=== PATIENT | female | born 1990 | race Caucasian/White ===

== ENCOUNTER 2018-04-20 16:09 | Emergency (ER) | payer MEDICARE, MEDICAID, SELFPAY ==
[2018-04-20 16:15] VITALS: BP 123/75; PULSE 88; RESP 12; TEMP 37.4; O2SAT 97
--- NOTE | 2018-04-20 16:41 | ED.GENADUL ---
Disposition Clinical Impression: Left foot pain Disposition: HOME Condition: Stable Instructions: Leg Pain (ED) Additional Instructions: Alternate Tylenol and Motrin as needed for pain. Apply ice to the affected area several times daily as needed. If you have any increasing pain, apply Neosporin and a Band-Aid. Follow-up with your primary care doctor within the next week as needed. Return to the emergency department with any worsening or new concerning symptoms such as fever, increased pain, redness or swelling. Medical Decision Making - Lab Data Pt refused test for radiology - Radiology Data Radiology results: report reviewed, image reviewed Left foot x-ray: Negative - Medical Decision Making 27 old female presents with a pruritic and mildly painful approximately 3x4cm minimally raised area of edema and erythema on the plantar surface of the left foot since this morning. There is no puncture wound or any indication of trauma. The area is extremely minimal in significance compared to remainder of foot and may be a very small allergic local reaction or inflammation or very slight infection. Patient instructed to apply ice to the affected area, and if any change or worsening of symptoms, apply Neosporin. Instructed to follow-up with primary care doctor return here if worse. History of Present Illness - General Chief complaint: Allergic Stated complaint: ALLERGIC REACTION Time Seen by Provider: 04/20/18 16:16 Source: patient Mode of arrival: ambulatory Limitations: no limitations - History of Present Illness Initial comments: Patient is a 27 old female who presents with a red swollen area to the bottom of her left foot since this morning. Patient states she was seen recently at the hospital for a possible allergic reaction to her left ankle and was put on antibiotic and steroid. Patient states she is unsure how she developed this area on the bottom of her foot and admits to some itching and pain. He denies new injury or other new medications. - Related Data Unknown [No Known Home Meds] 04/20/18 Allergies Allergy/AdvReac Type Severity Reaction Status Date / Time amoxicillin AdvReac Intermediate Hives Unverified 04/20/18 16:28 Penicillins AdvReac Intermediate Hives Unverified 04/20/18 16:26 Review of Systems Constitutional: denies: chills, fever Eyes: denies: eye pain ENT: denies: ear pain, dental pain Respiratory: denies: cough, shortness of breath Cardiovascular: denies: chest pain, dyspnea on exertion Gastrointestinal: denies: abdominal pain, nausea, vomiting Genitourinary: denies: urgency, dysuria, frequency Musculoskeletal: denies: back pain Skin: denies: rash, lesions Neurological: denies: headache, weakness, numbness Past Medical History - Past Medical History Medical history: no medical history Surgical history: no surgical history Psychiatric history: schizophrenia - Social History Smoking status: current everyday smoker Alcohol use: occasionally Drug use: none General Exam - General Limitations: no limitations General appearance: alert, in no apparent distress - Eye Eye exam: Present: EOMI - Respiratory Respiratory exam: Absent: respiratory distress - Cardiovascular Cardiovascular Exam: Present: regular rate - Extremities Exam Extremities exam: Present: other (Extremely minimal area of approximatley 3x4cm erythema and edema noted to plantar surface of foot within arch of foot and left heel. There is no rash, abrasion, laceration, induration, fluctuance or puncture wound or obvious foreign body. There is no tenderness to palpation of this area.) - Neurological Exam Neurological exam: Present: alert, oriented X3 - Psychiatric Psychiatric exam: Present: normal affect - Skin Skin exam: Present: warm, dry, intact Course Vital Signs - 24 hr 04/20/18 16:15 Temperature 99.3 F Pulse 88 Respiratory 12 Rate Blood Pressure 123/75 Pulse Oximetry 97
[2018-04-20] MEDS: Acetaminophen 325 MG TAB 650 MG PO (16:46)
--- NOTE | 2018-04-20 16:54 | DI.REPORT_ITS ---
SYMPTOM/DIAGNOSIS: LT HEEL PAIN, R/O ACUTE FOREIGN BODY, FX LEFT FOOT: Three views. No bone or joint abnormality is identified. No radiopaque foreign bodies are seen in the soft tissues. IMPRESSION: Negative examination.
--- NOTE | 2018-04-20 17:13 | DI.VRAD_ITS ---
EXAM: XR Left Foot Complete, 3 or more Views EXAM DATE/TIME: 04/20/2018 4:42 PM CLINICAL HISTORY: 27 years old, female; Signs and symptoms; Other: Left heel pain, R/O foreign body/fx, PT has rash on foot TECHNIQUE: XR Left foot 3 or more views. COMPARISON: No relevant prior studies available. FINDINGS: Bones/joints: Normal. Soft tissues: Normal. IMPRESSION: No acute findings. Dictated and Authenticated by: Buzz Souza MD. Ordering:DEMETRA SMYTH MD
[2018-04-20 17:42] VITALS: BP 123/75; PULSE 88; RESP 12; TEMP 37.4; O2SAT 97
== END 2018-04-20 17:42 | disposition home or self-care (01) ==
PROVIDERS: Emergency Provider Physician Assistant; PCP Family Medicine
DX: M79.672 Pain in left foot (principal)
CPT/HCPCS: 99283; 73630

== ENCOUNTER 2018-04-28 13:07 | Emergency (ER) | payer MEDICARE, MEDICAID, SELFPAY ==
[2018-04-28 13:15] VITALS: BP 114/68; PULSE 80; RESP 16; TEMP 37.1; O2SAT 97
--- NOTE | 2018-04-28 13:28 | ED.GENADUL_ITS ---
Disposition Clinical Impression: Visit for pelvic exam Disposition: HOME Condition: Stable Instructions: Vaginal Foreign Body (ED) Additional Instructions: You were not found to have a retained tampon on your exam today. Be sure to be aware of when you are removing her tampons. The risk of a retained tampon includes toxic shock syndrome in which you develop a fever and a systemic infection. If you develop any worsening or new concerning symptoms, return immediately to the emergency department. Follow-up with your primary care doctor in 1 week as needed. Medical Decision Making - Medical Decision Making 27-year-old female who presents for concern for retained tampon. Vitals within normal limits. No acute findings on exam. Patient appears nontoxic. Pelvic exam revealed no retained tampon. No cervical motion or adnexal tenderness or mass. There is white physiologic discharge noted. Patient denied any known vaginal discharge. Patient states she feels fine and would like to go home. She states she thinks she now may have removed it and just could not remember. Patient instructed on the concern with retained tampons and the possibility of toxic shock syndrome. She is instructed to follow-up with her primary care doctor as needed and return here if worse. History of Present Illness - General Chief complaint: LOCKER ROOM ATTENDANT Stated complaint: UNKNOWN Time Seen by Provider: 04/28/18 13:09 Source: patient Mode of arrival: ambulatory Limitations: no limitations - History of Present Illness Initial comments: Patient is a 27-year-old female presents for concern of retained tampon since last night. Patient states she put a tampon in at 9 PM last night and cannot remember if she removed it. States she pulled it out and did not see any blood on it and she cannot remember if it was just the string or the tampon as well. She denies fever, nausea, vomiting, abdominal pain, vaginal discharge or bleeding. - Related Data Unknown [No Known Home Meds] 04/20/18 Allergies Allergy/AdvReac Type Severity Reaction Status Date / Time amoxicillin AdvReac Intermediate Hives Unverified 04/28/18 13:18 Penicillins AdvReac Intermediate Hives Unverified 04/28/18 13:18 Review of Systems Constitutional: denies: chills, fever Eyes: denies: eye pain ENT: denies: ear pain, dental pain Respiratory: denies: cough, shortness of breath Cardiovascular: denies: chest pain, dyspnea on exertion Gastrointestinal: denies: abdominal pain, nausea, vomiting Genitourinary: denies: urgency, dysuria, frequency Musculoskeletal: denies: back pain Skin: denies: rash, lesions Neurological: denies: headache, weakness, numbness Past Medical History - Past Medical History Medical history: no medical history Surgical history: no surgical history Psychiatric history: schizophrenia - Social History Smoking status: current everyday smoker Alcohol use: occasionally Drug use: none General Exam - General Limitations: no limitations General appearance: alert, in no apparent distress - Eye Eye exam: Present: EOMI - Respiratory Respiratory exam: Present: normal lung sounds bilaterally. Absent: respiratory distress, wheezes, rales, rhonchi, stridor - Cardiovascular Cardiovascular Exam: Present: regular rate, normal rhythm. Absent: bradycardia , tachycardia - GI/Abdominal GI/Abdominal exam: Present: soft, normal bowel sounds. Absent: distended, tenderness, guarding, rebound, rigid - Neurological Exam Neurological exam: Present: alert, oriented X3 - Psychiatric Psychiatric exam: Present: normal affect - Skin Skin exam: Present: warm, dry, intact Course Vital Signs - 24 hr 04/28/18 13:15 Temperature 98.8 F Pulse 80 Respiratory 16 Rate Blood Pressure 114/68 Pulse Oximetry 97
[2018-04-28 13:53] VITALS: BP 114/68; PULSE 80; RESP 16; TEMP 37.1; O2SAT 97
== END 2018-04-28 13:53 | disposition home or self-care (01) ==
PROVIDERS: Emergency Provider Physician Assistant; PCP Family Medicine
DX: T19.2XXA Foreign body in vulva and vagina, initial encounter (principal); Z71.1 Person with feared health complaint in whom no diagnosis is made
CPT/HCPCS: 99282; 99284

== ENCOUNTER 2018-06-11 12:28 | Emergency (ER) | payer MEDICARE, MEDICAID, SELFPAY ==
[2018-06-11 12:34] VITALS: BP 105/65; PULSE 79; RESP 16; TEMP 37.2; O2SAT 97
--- NOTE | 2018-06-11 12:43 | W.ED.GENAD ---
Discharge Plan Discharge Details Chief Complaint: CORPORATE GENERAL MANAGER Primary Care Provider: Kayla Montgomery ED Provider: Tyrone Johnson Home Meds and New Rx's Prescriptions: No Action No Known Home Meds RF: 0 Medical Decision Making 27-year-old female presents with concern for possible STD. She denies any symptoms. She states that she has otherwise been well. Screening urinalysis and [id number] test obtained. Patient referred for GC and chlamydia urine testing she understands that these tests will not come back today. She will follow up with PMD for recheck or call for result. HPI General Mode of arrival: ambulatory. Date/Time Provider Initiated Documentation: 06/11/18 12:37. Limitations to Documentation: no limitations. Information obtained by: patient. History of Present Illness 27 year old F presents to the emergency department with the chief complaint of STD testing, HPI Narrative: Patient presents with CC of wanting STD testing ue to unprotected sex. no other complaints. Denies vaginal bleeding or discharge. No fever. Related Data Home Medications Medication Instructions Recorded Confirmed Unknown [No Known Home Meds] 04/20/18 06/11/18 Allergies Allergy/AdvReac Type Severity Reaction Status Date / Time amoxicillin AdvReac Intermediate Hives Unverified 06/11/18 12:36 Penicillins AdvReac Intermediate Hives Unverified 06/11/18 12:36 General Stated Complaint: CORPORATE GENERAL MANAGER PATTY: 4 Review of Systems Review of Systems 6 systems reviewed and otherwise negative [facility] Social History Smoking/Tobacco Use Status: Current every day Exam Narrative Exam Narrative: GEN: awake, alert, oriented 3. Pleasant, well groomed, interactive. HEAD: Normocephalic, atraumatic ENT: Mucous membranes moist, oropharynx unremarkable, External ear exam unremarkable EYES: PERRL, EOMI NECK: Full ROM, no JUSTIN, no menigismus CHEST/RESP: Nontender, clear to auscultation bilateral, no wheeze/rhonchi/rales CARDIOVASCULAR: RRR, no murmur, rub brennan. 2+ Rad pulse bilateral ABDOMEN: Soft, nontender, no mass. +Bowel sounds EXT: Full ROM, no edema, no rash Neuro: Grossly normal neurologic exam, conversant, interactive. Psych: Speech fluent, thoughts congruent, affect normal Course Vital Signs Temperature 37.2 C 06/11/18 12:34 Pulse 79 06/11/18 12:34 Respiratory Rate 16 06/11/18 12:34 Blood Pressure 105/65 06/11/18 12:34 Pulse Oximetry 97 06/11/18 12:34 Temperature 37.2 C 06/11/18 12:34 Temperature Source Temporal Artery Scan 06/11/18 12:34 Pulse 79 06/11/18 12:34 Respiratory Rate 16 06/11/18 12:34 Blood Pressure 105/65 06/11/18 12:34 Pulse Oximetry 97 06/11/18 12:34 Pain Level 0 06/11/18 12:37
--- NOTE | 2018-06-11 12:46 | ED.GENADUL_ITS ---
Discharge Plan Discharge Details Chief Complaint: PIZZA HUT ASSISTANT Primary Care Provider: Kayla Montgomery ED Provider: Tyrone Johnson Home Meds and New Rx's Prescriptions: No Action No Known Home Meds RF: 0 Medical Decision Making 27-year-old female presents with concern for possible STD. She denies any symptoms. She states that she has otherwise been well. Screening urinalysis and [id number] test obtained. Patient referred for GC and chlamydia urine testing she understands that these tests will not come back today. She will follow up with PMD for recheck or call for result. HPI General Mode of arrival: ambulatory . Date/Time Provider Initiated Documentation: 06/11/18 12:37 . Limitations to Documentation: no limitations . Information obtained by: patient . History of Present Illness 27 year old F presents to the emergency department with the chief complaint of STD testing, HPI Narrative: Patient presents with CC of wanting STD testing ue to unprotected sex. no other complaints. Denies vaginal bleeding or discharge. No fever. Related Data Home Medications Medication Instructions Recorded Confirmed Unknown [No Known Home Meds] 04/20/18 06/11/18 Allergies Allergy/AdvReac Type Severity Reaction Status Date / Time amoxicillin AdvReac Intermediate Hives Unverified 06/11/18 12:36 Penicillins AdvReac Intermediate Hives Unverified 06/11/18 12:36 General Stated Complaint: PIZZA HUT ASSISTANT PATTY: 4 Review of Systems Review of Systems 6 systems reviewed and otherwise negative [facility] Social History Smoking/Tobacco Use Status: Current every day Exam Narrative Exam Narrative: GEN: awake, alert, oriented 3. Pleasant, well groomed, interactive. HEAD: Normocephalic, atraumatic ENT: Mucous membranes moist, oropharynx unremarkable, External ear exam unremarkable EYES: PERRL, EOMI NECK: Full ROM, no JUSTIN, no menigismus CHEST/RESP: Nontender, clear to auscultation bilateral, no wheeze/rhonchi/rales CARDIOVASCULAR: RRR, no murmur, rub brennan. 2+ Rad pulse bilateral ABDOMEN: Soft, nontender, no mass. +Bowel sounds EXT: Full ROM, no edema, no rash Neuro: Grossly normal neurologic exam, conversant, interactive. Psych: Speech fluent, thoughts congruent, affect normal Course Vital Signs Temperature 37.2 C 06/11/18 12:34 Pulse 79 06/11/18 12:34 Respiratory Rate 16 06/11/18 12:34 Blood Pressure 105/65 06/11/18 12:34 Pulse Oximetry 97 06/11/18 12:34 Temperature 37.2 C 06/11/18 12:34 Temperature Source Temporal Artery Scan 06/11/18 12:34 Pulse 79 06/11/18 12:34 Respiratory Rate 16 06/11/18 12:34 Blood Pressure 105/65 06/11/18 12:34 Pulse Oximetry 97 06/11/18 12:34 Pain Level 0 06/11/18 12:37
[2018-06-13 14:36] LABS: Chlamydia Result Negative; GC Result Negative; Specimen Description URINE
== END 2018-06-11 12:55 | disposition home or self-care (01) ==
PROVIDERS: Emergency Provider Emergency Medicine; PCP Family Medicine
DX: Z20.2 Contact with and (suspected) exposure to infections with a predominantly sexual mode of transmission
CPT/HCPCS: 81025; 87491; 87591; 99282

== ENCOUNTER 2018-08-21 13:42 | Outpatient (REF) | payer MEDICARE, MEDICAID, SELFPAY ==
--- NOTE | 2018-08-21 13:00 | PAPFT_PTH ---
PATIENT: BOYD MORGAN LOC: [facility] U#:[id number] AGE/SX: 27/F ROOM: RE08/21/[address]: ÁNGELA Robin : 1990 BED: DIS: 08/21/2018 SPEC #: [id number] RECD: 08/21/18 17:58 STATUS: MELA REQ #: [id number] BRIDGET: 08/21/18 13:[address]: Eliana Irving DEPT: [facility] Cytology RECD BY: Alina Zepeda ENTERED: 08/21/18 17:59 SP TYPE: PAPFT OT DR: Kayla Montgomery Tissues: 1 - CX/ENDOCX FOR PAP SMEARS Procedures: PAP THIN PREP/[facility] Screening Comments: [id number]
== END 2018-08-21 14:02 ==
LOC: LBN 13:42
PROVIDERS: PCP Family Medicine; Visit Provider Nurse Practitioner Family
DX: Z12.4 Encounter for screening for malignant neoplasm of cervix (principal)
CPT/HCPCS: 88142

== ENCOUNTER 2018-12-13 14:51 | Outpatient (CLI) | payer MEDICARE, MEDICAID, SELFPAY ==
[2018-12-13 15:59] LABS: HCG Qual (Serum) Negative
== END 2018-12-13 15:11 ==
PROVIDERS: PCP Family Medicine; Visit Provider Nurse Practitioner Psychiatric/Mental Health
DX: F20.9 Schizophrenia, unspecified (principal); Z32.00 Encounter for pregnancy test, result unknown
CPT/HCPCS: 36415; 84703

== ENCOUNTER 2019-05-12 22:58 | Emergency (ER) | payer MEDICARE, MEDICAID, SELFPAY ==
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
[2019-05-12 23:20] VITALS: BP 114/82; PULSE 80; RESP 16; TEMP 36.8; O2SAT 100
[2019-05-12 23:35] LABS: Abs Immature Grans 0.01 k/cumm (0.0-0.09); Absolute Basophil Count 0.04 k/cumm (0.0-0.2); Absolute Eosinophil Count 0.09 k/cumm (0.0-0.7); Absolute Lymphocyte Count 2.55 k/cumm (1.2-3.4); Absolute Monocyte Count 0.55 k/cumm (0.11-0.7); Basophils % 0.6; Eosinophils % 1.4; HCT 39.9 % (36.0-46.0); HGB 13.9 g/dL (12.0-15.5); Immature Grans % 0.2; Lymphocytes % 38.4; Mean Corp. HGB Concentration 34.8 g/dL (32.0-36.0); Mean Corpuscular Hemoglobin 34.8 pg (27.0-33.0); Mean Platelet Volume 9.8 fL (8.0-11.0); Monocytes % 8.3; Neutrophils % 51.1; Platelet Count 313 x1000/uL (130-400); RBC 3.99 m/cumm (4.00-5.20); RBC Distribution Width 12.9 % (11.7-14.6); White Blood Cell Count 6.64 k/cumm (4.4-10.8)
[2019-05-12] MEDS: LORazepam 1 MG TAB PO (23:51)
[2019-05-12 23:54] LABS: Salicylate 4.4 mg/dL (2.8-20.0)
[2019-05-12 23:58] LABS: ALT 16 U/L (14-59); AST 18 U/L (15-37); Albumin 3.9 g/dL (3.4-5.0); Alkaline Phosphatase 60 U/L (46-116); BUN 8 mg/dL (7-18); Bilirubin, Total 0.3 mg/dL (0.2-1.0); CO2 19.1 mmol/L (21.0-32.0); CREATININE 0.85 mg/dL (0.55-1.02); Calcium 8.3 mg/dL (8.5-10.1); Chloride 105 mmol/L (98-107); ETHANOL BLOOD 172.8 mg/dL (<3); Glucose 104 mg/dL (70-100); TSH 1.21 uIU/mL (0.36-3.74); Total Protein 7.5 g/dL (6.4-8.2)
[2019-05-13 00:04] LABS: Acetaminophen < 2 ug/mL (10-30)
[2019-05-13 00:12] LABS: Anion Gap 15.9 mmol/L (3-11); Sodium 140 mmol/L (136-145)
[2019-05-13 00:13] LABS: Potassium 3.1 mmol/L (3.5-5.1)
== END 2019-05-13 00:55 | disposition home or self-care (01) ==
PROVIDERS: Physician Assistant; Emergency Provider Emergency Medicine; PCP Family Medicine
DX: F10.120 Alcohol abuse with intoxication, uncomplicated (principal); Y90.6 Blood alcohol level of 120-199 mg/100 ml; F32.9 Major depressive disorder, single episode, unspecified; F20.9 Schizophrenia, unspecified; R45.851 Suicidal ideations
CPT/HCPCS: 36415; 80053; 80307; 99285; 80320; 80329; 81003; 84443; 85025; 99284

== ENCOUNTER 2019-05-16 16:57 | Emergency (ER) | payer MEDICARE, MEDICAID, SELFPAY ==
--- NOTE | 2019-05-16 16:59 | W.ED.GENAD ---
Discharge Plan Disposition Patient Disposition: HOME Condition: Good Discharge Details Chief Complaint: Recheck Clinical Impression: Encounter for removal of sutures Primary Care Provider: Kayla Montgomery ED Provider: Debi Rich Home Meds and New Rx's Prescriptions: No Action No Known Home Meds RF: 0 Discharge Instructions Instructions: Laceration (ED) Additional Instructions: Monitor wound for signs of infection including redness, warmth, drainage, increased pain, fever/chills. If you develop these or the new/worsening symptoms please seek care urgently once again. Referrals: Kayla Montgomery MD [Primary Care Provider] - Medical Decision Making Patient is a 28-year-old female presenting with chief complaint of suture removal. She reports that 5 days ago she suffered a laceration to the left corner of the mouth when she bit her lip. Was seen at [facility] in which time #3 simple interrupted absorbable stitches were placed. She was advised at that time to return to the ED for suture removal if they had not dissolved 5 days. Was unable to return to work interested came here. Wound appears to be healing well with reapproximation of the tissue. No erythema, warmth, drainage. No pain with palpation. 3 stitches were easily removed by myself. She was given return precautions. All questions and concerns were addressed and she is in agreement this plan. HPI General Mode of arrival: ambulatory. Date/Time Provider Initiated Documentation: 05/16/19 16:58. Limitations to Documentation: no limitations. Information obtained by: patient and RN notes reviewed. History of Present Illness 28 year old F presents to the emergency department with the chief complaint of suture removal, described as mild, and is localized to the mouth (laceration left corner of mouth). Patient reports no radiation. Patient started experiencing this day(s) (5) and it has been constant. No relieving factors improve symptom(s), No exacerbating factors reported . Patient notes no other symptoms.; denies fever/chills. Patient did receive the following treatments prior to arrival, none Related Data Home Medications Medication Instructions Recorded Confirmed Unknown [No Known Home Meds] 04/20/18 05/12/19 Allergies Allergy/AdvReac Type Severity Reaction Status Date / Time amoxicillin AdvReac Intermediate Hives Verified 05/12/19 23:40 Penicillins AdvReac Intermediate Hives Verified 05/12/19 23:40 General PATTY: 4 Review of Systems Constitutional Reports as per HPI, Denies chills, Denies fever(s) and Denies weakness Musculoskeletal Reports as per HPI and Denies tingling Integumentary/Breasts Reports as per HPI Neurologic Denies sensory deficit, Denies tingling and Denies weakness [facility] Social History Smoking/Tobacco Use Status: Current every day Alcohol Intake: current Alcohol Intake frequency: 3 or more drinks per day Drug use: Occasionally Substance use type: marijuana Do you feel safe in your relationship?: Yes History History 1 Para 0 Hx # Term Pregnancies Multiple births Hx # Pregnancies Ectopic pregnancies AB induced Hx Number of Living Children AB spontaneous Exam Const General: cooperative, healthy appearing, comfortable, no acute distress and well developed Nutritional Appearance: average body habitus and well nourished Orientation: alert and awake HENMT Mouth: oral mucosae normal, lip abnormal (laceration healing well as drawn below), tongue normal, salivary ducts normal, oropharynx normal and moist mucous membranes Mouth/tongue images: 1. well healed laceration, #[address] Resp Effort & Inspection: normal respiratory effort, able to speak in complete sentences and no respiratory distress Cardio Rate: regular rate Rhythm: regular rhythm Skin Trauma: laceration (well healing laceration as above with reapproximation of wound edges) Neuro General: alert and awake Cognition: normal cognition Speech: speech normal Gait: normal gait Motor: muscle tone normal throughout Psych Appearance: grossly normal and well kempt Mental Status: mental status grossly normal Speech and Movement: speech and movement normal
[2019-05-16 17:05] VITALS: BP 122/81; PULSE 101; RESP 19; TEMP 36.6; O2SAT 97
== END 2019-05-16 17:15 | disposition home or self-care (01) ==
LOC: ER 17:26
PROVIDERS: Emergency Provider Physician Assistant; PCP Family Medicine
DX: S01.511D Laceration without foreign body of lip, subsequent encounter (principal); X58.XXXD Exposure to other specified factors, subsequent encounter; Z48.02 Encounter for removal of sutures
CPT/HCPCS: 99282

== ENCOUNTER 2020-06-19 14:06 | Emergency (ER) | payer MEDICARE, MEDICAID, SELFPAY ==
[2020-06-19] VITALS (28 sets, daily range): BP systolic 54–124; BP diastolic 26–78; PULSE 80–110; RESP 0–30; TEMP 35.9; O2SAT 92–100
--- NOTE | 2020-06-19 14:00 | RT.EKG_ITS ---
APPROVED REPORT Exam: Resting ECG Patient Location: E HR:108 bpm ECG Measurements Heart Rate 108 AXIS SD 146 P 82 QRSd 101 QRS 121 QT 386 T -79 QTc 518 Conclusion Sinus tachycardia...rate> 99 Right axis deviation...QRS axis (111,269) Nonspecific repol abnormality, diffuse leads...ST dep, T flat/neg, ant/lat/inf Prolonged QT interval...QTc >495mS
[2020-06-19 14:32] LABS: O2 Sat (Venous) 91 %; pO2 (Venous) 82 mmHg
[2020-06-19 14:33] LABS: HGB 12.4 g/dL (11.2-15.7); MCH 32.7 pg (27.0-33.0); MCV 105.5 fL (80-95); MPV 9.7 fL (8.0-11.0); Nucleated RBC 0 %; Platelet Count 259 10^3/uL (130-400); RBC 3.79 10^6/uL (3.93-5.22); RDW 13.2 % (11.7-14.6); RDW-SD 50.7 fL; WBC 14.55 10^3/uL (4.4-10.8)
[2020-06-19] MEDS: EPINEPHrine 1 MG/10 ML SYR IVP (14:33)
--- NOTE | 2020-06-19 14:34 | W.ED.GENAD ---
Discharge Plan Disposition Patient Disposition: HEATHER GONZALEZ ([facility]) Discharge Details Clinical Impression: Cardiac arrest Primary Care Provider: Rosalio Hickman ED Provider: Rosalio Hickman Discharge Data Discharge Date/Time-TO BE ENTERED AT DEPARTURE: 06/19/20 15:22 Medical Decision Making <Simran Ospina - Last Filed: 06/19/20 15:30> 1335: Discussed case in details with physician at [facility] Kevin Paige MD. He accepts patient for emergent transfer. <Rosalio Hickman MD - Last Filed: 06/19/20 21:19> 29-year-old female presents unresponsive in cardiac arrest. Patient was found down by boyfriend who called EMS. Patient was last known normal at 930 this morning. EMS found patient unresponsive and in PEA. CPR was initiated and the patient was intubated. EMS did have regain of spontaneous circulation and then lost pulse again in route. On arrival patient had bradycardic pulse and then lost pulse transferring from EMS stretcher to the bed. CPR was immediately reinitiated and patient regained pulse after 1 round of CPR. Patient had been given epinephrine by EMS. Patient was given epinephrine 0.5 mg and started on Levophed drip. Systolic blood pressure maintained around 100. A triple-lumen catheter was placed right femoral vein for additional access. Initial labs reviewed and VBG reveals severe acidosis with elevated PCO2 and elevated lactate. Patient was given an amp of sodium bicarb. Screening ECG was reviewed and interpreted by me: Sinus tachycardia 108 bpm, QRS duration 101, QTc 518. On patient's person was acyclovir 400 mg tablet, Adderall ER 15 mg tablet, and quetiapine 300 mg tablet. There was note of methadone in the home. Unknown if patient took methadone. Chest x-ray reviewed and discussed with radiologist, right mainstem intubation noted, will pull to back 5 cm. Patient is to be transferred to [facility] as [facility] is not accepting patients in transfer. Of note [facility] is not on official EMS diversion at this time but they cannot accept patient in transfer. SWATHI Ospina spoke with Dr. Brown who will accept the patient in transfer. Initial labs reviewed and calcium noted to be 7.0. I will give an amp of calcium. I have maintained respiratory rate on ventilator at 20. Plan to initiate cooling with ice packs. Urine negative. --Additional labs resulted after patient was transferred to [facility] including urine drug screen notable for methadone. I did request that these labs be sent to [facility] treatment team. Lab Data Lab results reviewed: Yes I reviewed the patient's lab results. Lab results narrative: Laboratory Tests Range/Units 06/19/20 06/19/20 06/19/20 14:26 14:26 14:26 WBC (4.4-10.8) 10^3/uL 14.55 H RBC (3.93-5.22) 10^6/uL 3.79 L Hgb (11.2-15.7) g/dL 12.4 Hct (36.0-46.0) % 40.0 MCV (80-95) fL 105.5 H MCH (27.0-33.0) pg 32.7 MCHC (32.0-36.0) % 31.0 L RDW (11.7-14.6) % 13.2 Plt Count (130-400) 10^3/uL 259 MPV (8.0-11.0) fL 9.7 Immature Gran % See Differential Neutrophils % 68.0 Band Neutrophils % 1 Lymphocytes % 15.0 Atypical Lymphs % 3 Monocytes % 12.0 Eosinophils % 0.0 Basophils % 0.0 Metamyelocytes % 1 Nucleated RBC % % 0 Absolute Neutrophils (1.2-6.7) 10^3/uL 10.04 H Absolute Lymphocytes (1.2-3.4) 10^3/uL 2.62 Absolute Monocytes (0.1-0.8) 10^3/uL 1.75 H Absolute Eosinophils (0.0-0.7) 10^3/uL 0.00 Absolute Basophils (0.0-0.2) 10^3/uL 0.00 RBC Morphology See below Macrocytosis 1+ VBG pH (7.31-7.41) VBG pCO2 (41-51) mmHg VBG pO2 mmHg VBG HCO3 VBG Total CO2 VBG O2 Saturation % VBG Base Excess VBG Lactate (0.6-1.4) mmol/L Sodium (136-145) mmol/L 143 Potassium (3.5-5.1) mmol/L 3.9 Chloride (98-107) mmol/L 108 H Carbon Dioxide (21.0-32.0) mmol/L 21.6 Anion Gap (3-11) mmol/L 13.4 H BUN (7-18) mg/dL 15 Creatinine (0.55-1.02) mg/dL 1.95 H Estimated GFR/1.73 m2 (mL/min/1.73m2) 30.55 Glucose (74-106) mg/dL 131 H Calcium (8.5-10.1) mg/dL 7.0 L Magnesium (1.8-2.4) mg/dL 2.6 H Total Bilirubin (0.2-1.0) mg/dL 0.2 AST (15-37) U/L 391 H Alkaline Phosphatase (46-116) U/L 70 Troponin I (<0.06) ng/mL 0.07 Total Protein (6.4-8.2) g/dL 5.3 L Albumin (3.4-5.0) g/dL 2.7 L Salicylates (2.8-20.0) mg/dL < 2.8 Acetaminophen (10-30) ug/mL 3 Range/Units 06/19/20 06/19/20 14:26 14:26 WBC (4.4-10.8) 10^3/uL RBC (3.93-5.22) 10^6/uL Hgb (11.2-15.7) g/dL Hct (36.0-46.0) % MCV (80-95) fL MCH (27.0-33.0) pg MCHC (32.0-36.0) % RDW (11.7-14.6) % Plt Count (130-400) 10^3/uL MPV (8.0-11.0) fL Immature Gran % Neutrophils % Band Neutrophils % Lymphocytes % Atypical Lymphs % Monocytes % Eosinophils % Basophils % Metamyelocytes % Nucleated RBC % % Absolute Neutrophils (1.2-6.7) 10^3/uL Absolute Lymphocytes (1.2-3.4) 10^3/uL Absolute Monocytes (0.1-0.8) 10^3/uL Absolute Eosinophils (0.0-0.7) 10^3/uL Absolute Basophils (0.0-0.2) 10^3/uL RBC Morphology Macrocytosis VBG pH (7.31-7.41) 6.80 L* VBG pCO2 (41-51) mmHg > 100 H* VBG pO2 mmHg 82 VBG HCO3 Not Applicable VBG Total CO2 Not Applicable VBG O2 Saturation % 91 VBG Base Excess Not Applicable VBG Lactate (0.6-1.4) mmol/L 10.0 H* Sodium (136-145) mmol/L Potassium (3.5-5.1) mmol/L Chloride (98-107) mmol/L Carbon Dioxide (21.0-32.0) mmol/L Anion Gap (3-11) mmol/L BUN (7-18) mg/dL Creatinine (0.55-1.02) mg/dL Estimated GFR/1.73 m2 (mL/min/1.73m2) Glucose (74-106) mg/dL Calcium (8.5-10.1) mg/dL Magnesium (1.8-2.4) mg/dL Total Bilirubin (0.2-1.0) mg/dL AST (15-37) U/L Alkaline Phosphatase (46-116) U/L Troponin I (<0.06) ng/mL Total Protein (6.4-8.2) g/dL Albumin (3.4-5.0) g/dL Salicylates (2.8-20.0) mg/dL Acetaminophen (10-30) ug/mL HPI <Simran Ospina - Last Filed: 06/19/20 15:30> General Date/Time Provider Initiated Documentation: 06/19/20 14:13. <Rosalio Hickman MD - Last Filed: 06/19/20 21:19> General Mode of arrival: EMS. Limitations to Documentation: altered mental status. Information obtained by: EMS. HPI Narrative: 29-year-old female presents in cardiac arrest. History review of systems limited secondary to altered mental status. Per EMS, patient was last known normal around 930 this morning, recently found by boyfriend unresponsive. EMS arrived to find the patient pulseless, CPR initiated, patient was intubated, EMS did achieve return of spontaneous circulation and then lost pulse again and resumed CPR. <Rosalio Hickman MD - Last Filed: 06/19/20 21:19> Unobtainable due to mental status PFS <Simran Ospina - Last Filed: 06/19/20 15:30> Social History Smoking/Tobacco Use Status: Unknown Substance use type: unknown <Rosalio Hickman MD - Last Filed: 06/19/20 21:19> HENNJ Head: normocephalic Eyes Sclera: normal sclerae Pupils: fixed bilaterally and pupil size bilaterally 5 Neck Neck: supple Resp Auscultation: clear to auscultation bilaterally, no rales, no rhonchi and no wheezes Other: Patient is intubated and being mechanically ventilated Cardio Rate: regular rate Rhythm: regular rhythm GI Palpation: soft, not firm, no guarding, no masses and not rigid Skin General skin exam: no rashes or lesions noted Neuro General: tone normal Other: GCS 3 Extrem General: no edema Course <Simran Ospina - Last Filed: 06/19/20 15:30> Vital Signs Vital signs: Vital Signs Pulse 101 H 06/19/20 14:29 Blood Pressure 57/27 L 06/19/20 14:29 Pulse 101 H 06/19/20 14:29 Blood Pressure 57/27 L 06/19/20 14:29 <Rosalio Hickman MD - Last Filed: 06/19/20 21:19> Central Line Placement Right Femoral: Time Out Performed: Yes Patient Placed on Monitor/Pulse Ox: Yes Prep: mask, gown and gloves Central Line Prep: Chlorhexidine scrub and sterile drapes applied Ultrasound Used for Placement: Yes Central Line Lumen Inserted: triple Post Procedure: good blood return, all ports aspirated, flushed, capped and sutured in place with 3-0 nylon Patient Tolerated Procedure: well Complications: none <Rosalio Hickman MD - Last Filed: 06/19/20 21:19> Critical Care Time Critical Care Time: Yes Total Critical Care Time: 60 Attestation: I spent greater than 60 minutes addressing this patient's immediate life threats. Please see MDM section of note. This time was spent engaged in work directly related to the patient's care, exclusive of separate procedures, and failure to initiate these interventions would have likely resulted in clinically significant or life threatening deterioration in the patient's condition.
[2020-06-19] MEDS: Sodium Bicarbonate 50 MEQ/50 ML SYR IVP (14:40)
--- NOTE | 2020-06-19 14:50 | W.ED.GENAD ---
Discharge Plan Disposition Patient Disposition: HEATHER GONZALEZ ([facility]) Discharge Details Clinical Impression: Cardiac arrest Primary Care Provider: Rosalio Hickman ED Provider: Rosalio Hickman Home Meds and New Rx's Prescriptions: No Action No Known Home Meds RF: 0 Discharge Data Discharge Date/Time-TO BE ENTERED AT DEPARTURE: 06/19/20 15:22 Medical Decision Making 14:52 -- 29-year-old female found down by boyfriend, last known normal at 930 this morning, patient was unresponsive and with PEA upon EMS arrival. EMS initiated CPR and was able to achieve ROSC. In route to the emergency department patient lost pulse again and CPR was reinitiated. Patient intubated in the field. On arrival patient was noted to have pulse, bradycardic and was hypotensive, unresponsive with blown pupils. After bed transfer she again lost pulse and CPR was reinitiated briefly before regaining circulation. Patient was given epinephrine 0.5 mg and started on a norepinephrine infusion. Blood pressure improved. Naloxone 2mg IV was given. Initial labs resulted and patient is acidotic with significantly elevated lactate and PCO2.. Ventilator was adjusted to increased respiratory rate. Central line was placed right groin under ultrasound guidance by me without complication. SWATHI Ospina called [facility] and spoke with accepting physician Dr. Brown. Patient be transported emergently by dart helicopter. Screening ECG was reviewed and interpreted by me: Sinus tachycardia 108 bpm, QRS duration 101, QTc 518 Troponin 0.07 otherwise labs pending. --Medication identified on the patient by EMS acyclovir 400 mg tablet, Adderall XR 15 and Seroquel 300 mg. There was a question of potentially access to methadone in the home. HPI General Mode of arrival: ambulatory. Date/Time Provider Initiated Documentation: 06/19/20 14:13. Limitations to Documentation: altered mental status. Information obtained by: EMS. HPI Narrative: 29-year-old female found down by boyfriend, last known normal at 930 this morning, patient was unresponsive and with PEA upon EMS arrival. EMS initiated CPR and was able to achieve ROSC. In route to the emergency department patient lost pulse again and CPR was reinitiated. Patient intubated in the field. History and review of systems limited secondary to altered mental status. Related Data Home Medications Medication Instructions Recorded Confirmed Unknown [No Known Home Meds] 04/20/18 05/12/19 Allergies Allergy/AdvReac Type Severity Reaction Status Date / Time amoxicillin AdvReac Intermediate Hives Verified 06/24/20 08:39 Penicillins AdvReac Intermediate Hives Verified 06/24/20 08:39 General Stated Complaint: [employer] PATTY: 1 Review of Systems Unobtainable due to endotracheal tube and Unobtainable due to mental condition PFSH Surgical History (System 06/24/20 @ 08:39 by Sheba Barrera) S/P wisdom tooth extraction Family History (System 06/24/20 @ 08:39 by Sheba Barrera) Father Asthma Mother Anxiety Maternal Grandfather Colon cancer Social History (System 06/24/20 @ 08:39 by Sheba Barrera) Smoking/Tobacco Use Status: Unknown Alcohol Intake: current Alcohol Intake frequency: 3 or more drinks per day Drug use: Occasionally Substance use type: unknown Do you feel safe in your relationship?: Yes History History 1 Para 0 Hx # Term Pregnancies Multiple births Hx # Pregnancies Ectopic pregnancies AB induced Hx Number of Living Children AB spontaneous Exam Narrative Exam Narrative: Patient arrives unresponsive Eyes Pupils: fixed and pupil size bilaterally 4 Resp Other: No spontaneous breathing Cardio Other: Bradycardic on arrival GI Inspection: non-distended Skin Other: Pale Neuro General: not alert and not awake Other: Unresponsive Extrem General: no edema Course Vital Signs Vital signs: Vital Signs Respiratory Rate 30 H 06/19/20 14:10 Pulse 103 H 06/19/20 14:40 Pulse 104 H 06/19/20 14:40 Respiratory Rate 10 L 06/19/20 14:40 Blood Pressure 95/47 L 06/19/20 14:40 Blood Pressure Mean 59 06/19/20 14:40 Pulse Oximetry 98 06/19/20 14:27 Respiratory End-tidal CO2 51 06/19/20 14:40 Lab/Test Results Lab/Test Results: Laboratory Tests Range/Units 06/19/20 06/19/20 14:26 14:26 VBG pH (7.31-7.41) 6.80 L* VBG pCO2 (41-51) mmHg > 100 H* VBG pO2 mmHg 82 VBG HCO3 Not Applicable VBG Total CO2 Not Applicable VBG O2 Saturation % 91 VBG Base Excess Not Applicable VBG Lactate (0.6-1.4) mmol/L 10.0 H* Critical Care Time Critical Care Time Critical Care Time: Yes Total Critical Care Time: 50 Attestation: I spent greater than 50 minutes addressing this patient's immediate life threats. Please see MDM section of note. This time was spent engaged in work directly related to the patient's care, exclusive of separate procedures, and failure to initiate these interventions would have likely resulted in clinically significant or life threatening deterioration in the patient's condition.
[2020-06-19 14:51] LABS: AST 391 U/L (15-37); Albumin 2.7 g/dL (3.4-5.0); Alkaline Phosphatase 70 U/L (46-116); Anion Gap 13.4 mmol/L (3-11); BUN 15 mg/dL (7-18); Bilirubin, Total 0.2 mg/dL (0.2-1.0); CO2 21.6 mmol/L (21.0-32.0); CREATININE 1.95 mg/dL (0.55-1.02); Chloride 108 mmol/L (98-107); Estimated GFR 30.55 (mL/min/1.73m2); Glucose 131 mg/dL (74-106); Magnesium 2.6 mg/dL (1.8-2.4); Potassium 3.9 mmol/L (3.5-5.1); Sodium 143 mmol/L (136-145); Total Protein 5.3 g/dL (6.4-8.2)
[2020-06-19 14:52] LABS: Troponin I 0.07 ng/mL (<0.06)
[2020-06-19 14:54] LABS: Absolute Lymphocyte Count 2.62 10^3/uL (1.2-3.4); Absolute Neutrophil Count 10.04 10^3/uL (1.2-6.7); Atypical Lymphocytes % 3; Bands % 1
--- NOTE | 2020-06-19 14:54 | DI.RAD_ITS ---
EXAM: XR PORTABLE CHEST AP CLINICAL HISTORY: Unresponsive TECHNIQUE: 2D digital imaging was performed. COMPARISON: No exams were available for comparison FINDINGS: Exam is quite limited due to overlying material. Endo chair Oliver L tube has been placed which project s in the right main bronchus and should be pulled back at least 5 cm. A nasogastric tube is been juancarlos grant is projects in the stomach. The heart size is normal. The lungs are grossly clear. No pneumoth orax is visible. No rib fracture is seen. IMPRESSION: Endotracheal tube is positioned in the right main bronchus. Nasogastric tube projects in the stomach .
[2020-06-19 14:55] LABS: Absolute Monocyte Count 1.75 10^3/uL (0.1-0.8); Diff Comment Diff Reviewed; Macrocytosis 1+; Metamyelocytes % 1
[2020-06-19 15:00] LABS: Acetaminophen 3 ug/mL (10-30); Salicylate < 2.8 mg/dL (2.8-20.0)
--- NOTE | 2020-06-19 15:02 | NUR.NOTE ---
1406: upon arrival arrival patient lost, pulse 2 minutes of CPR started then ROSC. see code blue form for additional information Nursing Note:
[2020-06-19 15:03] LABS: ALT 239 U/L (14-59)
--- NOTE | 2020-06-19 15:05 | NUR.NOTE ---
1505: report given to [facility] flight crew. Nursing Note:
[2020-06-19 15:29] LABS: *AMPHETAMINES SCREEN URINE POSITIVE (Negative); *BARBITURATES SCREEN URINE Negative (Negative); *BENZODIAZEPINES SCREEN URINE Negative (Negative); Cannabinoids THC POSITIVE (Negative); Cocaine Screen,Urine Negative (Negative); METHADONE URINE SCREEN POSITIVE (Negative); OPIATES URINE SCREEN Negative (Negative)
--- NOTE | 2020-06-19 15:29 | NUR.NOTE ---
medication bottles sent home with boyfriend. He asked if family had sailaja conteh contacted, no family listed. BF reports he has only dated pt one week and does not know any family but will attempt to locate and contact prior to going to [facility].
[2020-06-19 15:48] LABS: Tricyclic Antidepressants Negative (Negative)
--- NOTE | 2020-06-19 16:21 | NUR.NOTE ---
called report to HAY Bruno [facility]
[2020-06-20 10:35] LABS: BE -11 mmol/L (-2-3); HCO3 20 mmol/L (22-26); pO2 302 mmHg (80-105)
[2020-06-20 10:39] LABS: pCO2 81 mmHg (35-45); sO2 > 99 % (95-98)
[2020-06-20 10:40] LABS: Site Left Radial
[2020-06-20 11:06] LABS: pCO2 (Venous) > 100 mmHg (41-51)
== END 2020-06-19 15:22 | disposition short-term general hospital (02) ==
PROVIDERS: Emergency Provider Student in an Organized Health Care Education/Training Program; PCP Student in an Organized Health Care Education/Training Program
DX: I46.9 Cardiac arrest, cause unspecified (principal); E87.2 Acidosis; H57.04 Mydriasis; R79.81 Abnormal blood-gas level; I95.9 Hypotension, unspecified; R00.1 Bradycardia, unspecified
CPT/HCPCS: 36415; 51702; 80053; 80307; 82805; 92950; 93005; 96365; 96375; 99291; 36600; 71045; 80329; 83605; 83735; 84484; 85025; 93010